=== PATIENT | male | born 1960 | race Caucasian/White ===

== ENCOUNTER 2019-01-20 15:33 | Emergency (ER) | payer BC ==
[2019-01-20 15:58] VITALS: BP 109/69
--- NOTE | 2019-01-20 16:13 | UC ---
Elbow Pain - HPI Summary HPI Summary: On Wednesday of this week the patient hyperextended his left elbow causing some pain and bruising to that area. He had a similar incidence about 2 or 3 weeks ago and was seen by his primary care provider who said it was a muscle strain and would recover with time. He states that had been recovering and then he was hiking on a trail and he slipped and grabbed a tree and once again hyperextended his left elbow. Since Wednesday he has had bruising at the elbow area and pain. - History of Current Complaint Chief Complaint: UCUpperExtremity Stated Complaint: ARM INJURY Time Seen by Provider: 01/20/19 16:12 Hx Obtained From: Patient Onset/Duration: Days - Incident happened 4 days ago. Severity Initially: Moderate Severity Currently: Mild Pain Intensity: 1 Character: Dull, Aching Aggravating Factor(s): Twisting Alleviating Factor(s): Rest Associated Signs And Symptoms: Positive: Bruising - Allergies/Home Medications Allergies/Adverse Reactions: Allergies Allergy/AdvReac Type Severity Reaction Status Date / Time No Known Allergies Allergy Verified 01/20/19 15:58 PMH/Surg Hx/FS Hx/Imm Hx Previously Healthy: Yes Other History Of: Negative For: Anticoagulant Therapy - Surgical History Surgical History: Yes Surgery Procedure, Year, and Place: retinal reattachment, appy, Other Surgical History: Appendectomy - Family History Known Family History: Positive: None - Social History Alcohol Use: Daily Alcohol Amount: couple of drinks daily Substance Use Type: None Smoking Status (MU): Former Smoker Amount Used/How Often: 1 PPD X 2-3 YEARS Have You Smoked in the Last Year: No When Did the Patient Quit Smoking/Using Tobacco: 30 YEARS AGO Review of Systems All Other Systems Reviewed And Are Negative: Yes Skin: Positive: Bruising - Bruising to the left inner elbow. Motor: Positive: Negative Neurovascular: Positive: Negative Musculoskeletal: Positive: Negative, Other: - Patient has good range of motion but he has increased pain when he rotates his lower left forearm. Neurological: Positive: Negative Psychological: Positive: Negative Is Patient Immunocompromised?: No Physical Exam Triage Information Reviewed: Yes Appearance: Well-Appearing, No Pain Distress, Well-Nourished Vital Signs: Initial Vital Signs Temp 97.9 F 01/20/19 15:51 Pulse 62 01/20/19 15:51 Resp 12 01/20/19 15:51 BP 109/69 01/20/19 15:51 Pulse Ox 100 01/20/19 15:51 Vital Signs Reviewed: Yes Musculoskeletal: Positive: Strength Intact, ROM Intact, No Edema, Other: - Good peripheral pulses neuro sensation capillary refill, good finger strength to flexion extension against resistance. Normal muscle contour. He does have extensive bruising in the medial elbow area and proximal to that and mildly distal to that in this forearm. He does have some tenderness on palpation. Good forearm strength with flexion and extension against resistance. Neurological: Positive: Alert, Muscle Tone Normal Psychological Exam: Normal Skin Exam: Other - Bruising of the elbow area. Elbow Pain Course/Dx - Course Course Of Treatment: Left elbow x-ray:REPORT AND IMPRESSION: #. Negative for fat pad displacement to indicate effusion. #. Negative for fracture or malalignment. Preserved joint spaces. #. Soft tissue swelling greatest over the medial aspect. Negative for subcutaneous emphysema. Patient refused an arm sling. He can take Tylenol for pain and he can apply heat to the sore area. Avoid movements that cause pain. He's follow-up with the orthopedist if no improvement or if he has any arm or muscle weakness over the next 3 or 4 days. - Differential Dx/Diagnosis Provider Diagnosis: Muscle strain of forearm Discharge - Sign-Out/Discharge Documenting (check all that apply): Patient Departure All imaging exams completed and their final reports reviewed: Yes - Discharge Plan Condition: Fair Disposition: HOME Patient Education Materials: Muscle Strain (DC) Referrals: Nghia Thapa MD [Medical Doctor] - David Small MD [Primary Care Provider] - Additional Instructions: Avoid movements that cause pain. He may apply heat to the sore area. May take Tylenol or Motrin for pain. Definite follow-up with the orthopedist if no improvement in 3 or 4 days or if you noticed that you have muscle weakness or arm weakness. - Billing Disposition and Condition Condition: FAIR Disposition: Home
== END 2019-01-20 16:56 | disposition home or self-care (01) ==
LOC: UCEAST 15:33
DX: S56.912A Strain of unspecified muscles, fascia and tendons at forearm level, left arm, initial encounter (principal); X50.9XXA Other and unspecified overexertion or strenuous movements or postures, initial encounter; Y92.9 Unspecified place or not applicable; Z87.891 Personal history of nicotine dependence
CPT/HCPCS: 99201; G0463

== ENCOUNTER 2019-07-15 10:45 | Emergency (ER) | payer BC ==
[2019-07-15 10:57] VITALS: BP 124/88
--- NOTE | 2019-07-15 11:47 | UC ---
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 he has had cough congestion chills and subjective fevers on/off for 4 days... he did get a flu vaccine this year - History of Current Complaint Chief Complaint: UCGeneralIllness Stated Complaint: COUGH SORE THROAT FEVER Time Seen by Provider: 07/15/19 11:46 Hx Obtained From: Patient Onset/Duration: Sudden Onset, Lasting Days - 4, Still Present Timing: Constant Pain Intensity: 3 Pain Scale Used: 0-10 Numeric Character: Cough: Nonproductive Aggravating Factors: Nothing Alleviating Factors: Nothing Associated Signs And Symptoms: Positive: Fever - subjective, Chills, URI, Nasal Congestion - Allergies/Home Medications Allergies/Adverse Reactions: Allergies Allergy/AdvReac Type Severity Reaction Status Date / Time No Known Allergies Allergy Verified 07/15/19 10:57 Home Medications: Home Medications NK [No Home Medications Reported] 07/15/19 [History Confirmed 07/15/19] PMH/Surg Hx/FS Hx/Imm Hx Previously Healthy: Yes Other History Of: Negative For: Anticoagulant Therapy - Surgical History Surgical History: Yes Surgery Procedure, Year, and Place: retinal reattachment, appy,niall Other Surgical History: Appendectomy - Family History Known Family History: Positive: None - Social History Occupation: Employed Full-time Lives: With Family Alcohol Use: Daily Alcohol Amount: couple of drinks daily Substance Use Type: None Smoking Status (MU): Former Smoker Amount Used/How Often: 1 PPD X 2-3 YEARS Have You Smoked in the Last Year: No When Did the Patient Quit Smoking/Using Tobacco: 30 YEARS AGO Review of Systems All Other Systems Reviewed And Are Negative: Yes Constitutional: Positive: Chills Skin: Positive: Negative Eyes: Positive: Negative ENT: Positive: Sore Throat, Nasal Discharge Respiratory: Positive: Cough Cardiovascular: Positive: Negative Gastrointestinal: Positive: Negative Genitourinary: Positive: Negative Motor: Positive: Negative Neurovascular: Positive: Negative Musculoskeletal: Positive: Negative Neurological: Positive: Negative Psychological: Positive: Negative Is Patient Immunocompromised?: No Physical Exam Triage Information Reviewed: Yes Appearance: No Pain Distress, Well-Nourished, Ill-Appearing - mild Vital Signs: Initial Vital Signs Temp 97.6 F 07/15/19 10:54 Pulse 72 07/15/19 10:54 Resp 16 07/15/19 10:54 BP 124/88 07/15/19 10:54 Pulse Ox 100 07/15/19 10:54 Vital Signs Reviewed: Yes Eye Exam: Normal Eyes: Positive: Conjunctiva Clear ENT Exam: Normal ENT: Positive: Normal ENT inspection, Hearing grossly normal, Pharynx normal, Nasal congestion, TMs normal, Uvula midline. Negative: Tonsillar swelling, Tonsillar exudate, Trismus, Muffled voice, Hoarse voice, Dental tenderness, Sinus tenderness Dental Exam: Normal Neck exam: Normal Neck: Positive: Supple, Nontender, No Lymphadenopathy Respiratory Exam: Normal Respiratory: Positive: Chest non-tender, Lungs clear, Normal breath sounds, No respiratory distress, No accessory muscle use Cardiovascular Exam: Normal Cardiovascular: Positive: RRR, No Murmur, Pulses Normal, Brisk Capillary Refill Musculoskeletal Exam: Normal Musculoskeletal: Positive: Strength Intact, ROM Intact, No Edema Neurological Exam: Normal Neurological: Positive: Alert, Muscle Tone Normal Psychological Exam: Normal Skin Exam: Normal Diagnostics - Laboratory Lab Results: imfluenza a/b - Respiratory Course/Dx - Course Course Of Treatment: increase fluids, mucinex tylenol ibuprofen follow with pcp - Differential Dx/Diagnosis Provider Diagnosis: Viral URI with cough Discharge ED - Sign-Out/Discharge Documenting (check all that apply): Patient Departure All imaging exams completed and their final reports reviewed: No Studies - Discharge Plan Condition: Stable Disposition: HOME Patient Education Materials: Upper Respiratory Infection (ED), Viral Syndrome ( ED) Referrals: David Small MD [Primary Care Provider] - If Needed - Billing Disposition and Condition Condition: STABLE Disposition: Home - Attestation Statements Provider Attestation: I was available for consult. This patient was seen by the [facility]ANE. The patient was not presented to, seen by, or examined by me. -Elida
[2019-07-15 12:28] LABS: Influenza A Molecular NEGATIVE (Negative); Influenza B Molecular NEGATIVE (Negative)
== END 2019-07-15 12:36 | disposition home or self-care (01) ==
LOC: UCEAST 10:45
DX: J06.9 Acute upper respiratory infection, unspecified (principal); R05 Cough; Z87.891 Personal history of nicotine dependence
CPT/HCPCS: 99211; G0463